=== PATIENT | male | born 1975 | race Caucasian/White ===

== ENCOUNTER 2018-12-31 12:27 | Emergency (ER) | payer BC, SELFPAY ==
[2018-12-31 12:27] VITALS: BP 125/84; PULSE 84; RESP 16; TEMP 36.7; O2SAT 98; BMI 35.2
--- NOTE | 2018-12-31 13:27 | RAD_ITS ---
STUDY: X-RAY - LEFT FOOT CLINICAL: Male, 43 years old. Laceration at the level of the fifth toe. TECHNIQUE: 3 there is a 17.6 mm x 1 mm linear metallic density in the plantar soft tissues between the first and second metatarsals proximally. Foreign body should be ruled out. view(s) of the foot. COMPARISON: None. FINDINGS: Normal talus, calcaneus, and tarsal bones. Normal visualized subtalar, talonavicular, calcaneocuboid, tarsal and tarsometatarsal articulations. Normal metatarsi. Normal metatarsophalangeal joint of the great toe. Normal tibial and fibular sesamoid bones. Normal interphalangeal joint of the great toe. Normal phalanges of the great toe. Normal second through fifth metatarsophalangeal joints. Normal interphalangeal joints and phalanges of the lesser toes. RAD/Foot min 3 Views IMPRESSION: Possible foreign body in the plantar soft tissues between the proximal aspects of the first and second metatarsals. Electronically Signed: Gideon Buck, at 14:06 EDT , Service support ,
--- NOTE | 2018-12-31 14:13 | ED.DCSUM_ITS ---
- ER Visit Summary Date of Service: 12/31/18 Chief Complaint: Glass in foot History of Present Illness: The patient is a 43 M who believes he may have a piece of glass in his foot. He went outside in his garage in his socks yesterday. He stepped on something and felt some pain on the lateral part of his foot. Is worse with walking. He went to urgent care and they were unable to remove any foreign bodies. Physical Examination: Vital signs are reviewed. Left foot exam reveals no foreign body can that can be seen. There is no erythema. He has full range of motion. Test Results: X-rays show a foreign body near the first and second metatarsal Emergency Department Course and Treatment: This foreign bodies on the lateral part of the foot. When I explored it with splinter forceps I am able to feel and hear a glass or metallic foreign body. I do not feel this anymore after I explored this area further. This foreign body that seen on x-ray has likely been in there for a while and is nowhere near where he is having the discomfort. At this point I feel like we have remove the foreign body that was causing him discomfort. The other one is not causing him any pain. He will follow-up with his doctors for this 1. Treatment Plan: [] Disposition: Discharge Impression: Foreign body, left foot This note was generated with [employer] dictation software. It may contain incorrect words, spelling, and punctuation that were not noted in review of the chart prior to signing ED Disposition - Plan for ED Patient: Referrals: Care Physician,No Primary [Primary Care Provider] -
--- NOTE | 2018-12-31 14:15 | ED.DEP ---
ED Disposition - Plan for ED Patient: Disposition: Home or Assisted Living Instructions: FOREIGN BODY, Soft Tissue [Removed] Referrals: Care Physician,No Primary [Primary Care Provider] -
== END 2018-12-31 14:38 | disposition home or self-care (01) ==
PROVIDERS: Emergency Provider Emergency Medicine
DX: S90.852A Superficial foreign body, left foot, initial encounter (principal); W22.8XXA Striking against or struck by other objects, initial encounter; Y93.01 Activity, walking, marching and hiking; Y92.015 Private garage of single-family (private) house as the place of occurrence of the external cause; Z72.0 Tobacco use
CPT/HCPCS: 10120; 73630; 99282